=== PATIENT | male | born 1975 | race Two or more races ===

== ENCOUNTER 2021-12-30 19:00 | Outpatient (CLI) | payer BC | END 2021-12-30 19:01 | disposition home or self-care (01) | LOC: SLEEPLAB 19:00 | PROVIDERS: ATTEND Internal Medicine Pulmonary Disease | DX: G47.61 Periodic limb movement disorder (principal); G25.81 Restless legs syndrome; R53.83 Other fatigue; R51.9 Headache, unspecified; G47.10 Hypersomnia, unspecified; F32.9 Major depressive disorder, single episode, unspecified; G47.00 Insomnia, unspecified; F41.9 Anxiety disorder, unspecified | CPT/HCPCS: 95810 ==